=== PATIENT | female | born 1990 | race African-American/Black ===

== ENCOUNTER 2016-10-27 10:37 | Emergency (ER) | payer OTHER ==
[2016-10-27 10:44] VITALS: BP 125/69; PULSE 74; TEMP 97.8; BMI 31.8
--- NOTE | 2016-10-27 12:08 | PDOC ---
History of Present Illness - General Chief Complaint: Respiratory Stated Complaint: COLD SYMPTOMS Time Seen by Provider: 10/27/16 12:02 History Source: Patient Exam Limitations: No Limitations - History of Present Illness Initial Comments: 10/27/16 12:31 Patient here with complaints of cough, ear and throat pain, runny nose with clear drainage, nonproductive cough, mild nausea and generalized body aches. Feels may have influenza. Works as a inside sales advisor at [employer] Timing/Duration: reports: just prior to arrival Severity: reports: moderate Associated Symptoms: reports: chest pain/soreness, cough, fever/chills, nasal congestion, nasal drainage, sore throat Past History - Travel Traveled outside of the country in the last 30 days: No Close contact w/someone who was outside of country & ill: No - Past Medical History Allergies/Adverse Reactions: Allergies Allergy/AdvReac Type Severity Reaction Status Date / Time latex Allergy Difficulty Verified 10/27/16 11:44 Breathing Home Medications: Ambulatory Orders Oseltamivir Phosphate [Tamiflu -] 75 mg PO BID #10 capsule 10/27/16 Anemia: Yes HTN: Yes (PRECLAMPSIA) - Surgical History Abdominal Surgery: Yes ( A BABY) - Reproductive History (#): 1 Para: 0 Therapeutic (s) & number: No - Immunization History Immunization Up to Date: Yes - Psycho/Social/Smoking Cessation Hx Anxiety: No Suicidal Ideation: No Smoking History: Never smoked Hx Alcohol Use: Yes ("SOCIALLY") Drug/Substance Use Hx: No Substance Use Type: None Review of Systems - Review of Systems Able to Perform ROS?: Yes Is the patient limited Nepali proficient: Yes Constitutional: Yes: Symptoms Reported, See HPI, Chills, Fever, Loss of Appetite , Malaise Respiratory: Yes: Symptoms reported, See HPI, Cough. No: Wheezing Cardiac (ROS): No: Symptoms Reported ABD/GI: Yes: Symptoms Reported Musculoskeletal: Yes: Symptoms Reported, See HPI, Muscle Pain, Muscle Weakness Integumentary: No: Symptoms Reported Neurological: No: Symptoms reported All Other Systems: Reviewed and Negative *Physical Exam - Vital Signs Last Vital Signs Temp Pulse Resp BP Pulse Ox 97.8 F 74 16 125/69 99 10/27/16 10:41 10/27/16 10:41 10/27/16 10:41 10/27/16 10:41 10/27/16 10:41 - Physical Exam General Appearance: Yes: Nourished, Appropriately Dressed, Apparent Distress, Mild Distress HEENT: positive: [place]OD, Normal ENT Inspection, TMs Normal, Pharynx Normal Neck: positive: Supple, Lymphadenopathy (R), Lymphadenopathy (L) Respiratory/Chest: positive: Lungs Clear, Normal Breath Sounds. negative: Wheezing (course but clear) Cardiovascular: positive: Regular Rhythm Gastrointestinal/Abdominal: positive: Soft. negative: Tender, Distended, Guarding, Rebound Musculoskeletal: positive: Normal Inspection Extremity: positive: Normal Capillary Refill, Normal Inspection, Normal Range of Motion, Tender Integumentary: positive: Dry, Warm, Pale Neurologic: positive: pallet sorter II-XII NML intact, Fully Oriented, Alert, Normal Mood/ Affect, Normal Response, Motor Strength 5/5, Abnormal Cranial NS Progress Note - Progress Note Progress Note: Upper respiratory infection probable influenza, we'll treat with Tamiflu *DC/Admit/Observation/Transfer Diagnosis at time of Disposition: Upper respiratory infection Qualifiers: URI type: unspecified viral URI Qualified Code(s): J06.9 - Acute upper respiratory infection, unspecified; B97.89 - Other viral agents as the cause of diseases classified elsewhere - Discharge Dispostion Disposition: HOME Condition at time of disposition: Stable Admit: No - Patient Instructions Printed Discharge Instructions: DI for Viral Upper Respiratory Infection -- Adult Additional Instructions: Rest, drink lots of fluids: Teas, water, soups, Pedialyte Saltwater gargles Steamy showers/seem to face break up mucus Old-fashioned treatments help! Avoid contact with others until fevers and cough resolved as this is very contagious Lots of handwashing and good hygiene Continue [id number] medications for symptomatic relief Tylenol or Motrin for fever and pain Take all of Tamiflu as directed: 1 tab every 12 hours for 5 days Followup with private physician in one to 2 days as needed or if worsening Return to emergency department for worsened symptoms, fevers, dehydration Influenza takes between 5 and 7 days for resolution To not participate in any activity, work, or school until fevers and cough are gone for at least one day - Post Discharge Activity Work/School Note: Back to Work
== END 2016-10-27 12:32 | disposition home or self-care (01) ==
LOC: JERFT 10:37
DX: J06.9 Acute upper respiratory infection, unspecified (principal); D64.9 Anemia, unspecified
CPT/HCPCS: 99281-25

== ENCOUNTER 2017-05-12 09:43 | Emergency (ER) | payer SELFPAY ==
[2017-05-12 09:46] VITALS: TEMP 98; BMI 32.4
[2017-05-12] MEDS ORDERED: diazePAM 5 MG TABLET PO ONE (10:57)
[2017-05-12] MEDS ORDERED: KETOROLAC TROMETHAMINE 30 MG/1 ML VIAL IM ONE (10:57)
[2017-05-12] MEDS ORDERED: KETOROLAC TROMETHAMINE 60 MG/2 ML VIAL IM ONE (11:00)
[2017-05-12] MEDS ORDERED: diazePAM 5 MG TABLET ONE (11:02)
[2017-05-12] MEDS ORDERED: KETOROLAC TROMETHAMINE 60 MG/2 ML VIAL ONE (11:02)
--- NOTE | 2017-05-12 11:06 | PDOC ---
History of Present Illness - General Chief Complaint: Back Pain Stated Complaint: BACK PAIN Time Seen by Provider: 05/12/17 10:20 History Source: Patient - History of Present Illness Occurred: reports: other Severity: reports: severe Pain Location: reports: back Past History - Past Medical History Allergies/Adverse Reactions: Allergies Allergy/AdvReac Type Severity Reaction Status Date / Time latex Allergy Difficulty Verified 05/12/17 09:46 Breathing Home Medications: Ambulatory Orders Cyclobenzaprine HCl [Flexeril -] 10 mg PO TID #9 tablet 05/12/17 Ibuprofen [Motrin -] 600 mg PO QID #28 tablet 05/12/17 Anemia: Yes HTN: Yes (PRECLAMPSIA) - Surgical History Abdominal Surgery: Yes ( A BABY) - Reproductive History (#): 1 Para: 0 Therapeutic (s) & number: No - Immunization History Immunization Up to Date: Yes - Psycho/Social/Smoking Cessation Hx Anxiety: No Suicidal Ideation: No Smoking History: Never smoked Information on smoking cessation initiated: No Hx Alcohol Use: Yes ("SOCIALLY") Drug/Substance Use Hx: No Substance Use Type: None Review of Systems - Review of Systems Constitutional: No: Chills, Fever : No: Dysuria, Flank Pain, Hematuria Musculoskeletal: Yes: Back Pain Neurological: No: Numbness, Tingling, Weakness *Physical Exam - Vital Signs Last Vital Signs Temp Pulse Resp BP Pulse Ox 98 F 70 18 165/98 100 05/12/17 09:45 05/12/17 09:45 05/12/17 09:45 05/12/17 09:45 05/12/17 09:45 - Physical Exam Comments: 05/12/17 11:04 Pt sitting on stretcher with her hands on her mid lower pain and crying loudly in ED 05/12/17 11:06 General Appearance: Yes: Appropriately Dressed, Severe Distress HEENT: positive: Normal Voice Neck: positive: Supple Respiratory/Chest: negative: Respiratory Distress Musculoskeletal: positive: Vertebral Tenderness (to mid lower back). negative: CVA Tenderness Extremity: positive: Normal Inspection Integumentary: positive: Dry, Warm Neurologic: positive: Fully Oriented, Alert, Normal Mood/Affect Medical Decision Making - Medical Decision Making 05/12/17 11:01 26-year-old female, denies any past medical history here with severe back pain. Patient complaining of gradual onset of mid lower back pain 2 days ago that was initially intermittent but worsened this a.m. and now constant and sharp. Pain does not radiate and no lower extremity weakness, saddle anesthesia, bowel or bladder incontinence, dysuria, hematuria, nausea, vomiting, fever or chills. Denies any trauma and no obvious inciting agents. No h/o simialr pain and has not taken any pain meds. No history of kidney stone. See exam LBP Possible spasm No red flags at this time, i.e cauda equina or infxn -pain meds -reassess 05/12/17 11:07 05/12/17 12:44 Pt appears more comfortable and states she feels much better. Will dc w/ rx for pain control *DC/Admit/Observation/Transfer Diagnosis at time of Disposition: Low back pain Qualifiers: Chronicity: acute Back pain laterality: bilateral Sciatica presence: without sciatica Qualified Code(s): M54.5 - Low back pain - Discharge Dispostion Disposition: HOME Condition at time of disposition: Improved - Prescriptions Prescriptions: Cyclobenzaprine HCl [Flexeril -] 10 mg PO TID #9 tablet Ibuprofen [Motrin -] 600 mg PO QID #28 tablet - Patient Instructions Printed Discharge Instructions: Low Back Pain Additional Instructions: Take medication as directed and follow up with your PMD if pain persists
[2017-05-12 12:33] LABS: URINE APPEARANCE SLCLOUDY; URINE BILIRUBIN NEGATIVE (NEGATIVE); URINE BLOOD NEGATIVE (NEGATIVE); URINE COLOR LTYELLOW; URINE GLUCOSE (UA) NEGATIVE (NEGATIVE); URINE KETONE NEGATIVE (NEGATIVE); URINE LEUK ESTERASE NEGATIVE (NEGATIVE); URINE NITRITE NEGATIVE (NEGATIVE); URINE PROTEIN NEGATIVE (NEGATIVE); URINE UROBILINOGEN NEGATIVE mg/dL (0.2-1.0)
--- NOTE | 2017-05-12 12:54 | PDOC ---
*Physical Exam - Vital Signs Last Vital Signs Temp Pulse Resp BP Pulse Ox 98 F 70 18 165/98 100 05/12/17 09:45 05/12/17 09:45 05/12/17 09:45 05/12/17 09:45 05/12/17 09:45 ED Treatment Course - ADDITIONAL ORDERS Additional order review: Laboratory Results 05/12/17 05/12/17 10:57 10:20 Urine Color Ltyellow Urine Appearance Slcloudy Urine pH 6.0 Urine Protein Negative Urine Glucose (UA) Negative Urine Ketones Negative Urine Blood Negative Urine Nitrite Negative Urine Bilirubin Negative Urine Urobilinogen Negative Ur Leukocyte Esterase Negative Urine HCG, Qual Negative - Medications Given in the ED: ED Medications Discontinued Medications Generic Name Dose Route Start Last Admin Trade Name Rajni MUNOZ Reason Stop Dose Admin Diazepam 5 mg 05/12/17 10:57 05/12/17 11:16 Valium - PO 05/12/17 10:58 5 mg ONCE ONE Administration Ketorolac Tromethamine 30 mg 05/12/17 10:57 05/12/17 11:18 Toradol Injection - IM 05/12/17 10:58 Not Given ONCE ONE Ketorolac Tromethamine 60 mg 05/12/17 11:00 05/12/17 11:16 Toradol Injection - IM 05/12/17 11:01 60 mg ONCE ONE Administration *DC/Admit/Observation/Transfer Diagnosis at time of Disposition: Low back pain Qualifiers: Chronicity: acute Back pain laterality: bilateral Sciatica presence: without sciatica Qualified Code(s): M54.5 - Low back pain - Discharge Dispostion Disposition: HOME Condition at time of disposition: Improved - Prescriptions Prescriptions: Cyclobenzaprine HCl [Flexeril -] 10 mg PO TID #9 tablet Ibuprofen [Motrin -] 600 mg PO QID #28 tablet - Referrals - Patient Instructions Printed Discharge Instructions: Low Back Pain Additional Instructions: Take medication as directed and follow up with your PMD if pain persists - Post Discharge Activity Work/School Note: Back to Work
[2017-05-12 13:05] VITALS: BP 158/64; PULSE 65
== END 2017-05-12 13:02 | disposition home or self-care (01) ==
LOC: JERFT 09:43 → JER 09:43
PROC: 3E0233Z Introduction of Anti-inflammatory into Muscle, Percutaneous Approach (ICD-10-PCS; principal; 2017-05-12)
DX: M54.5 Low back pain (principal); Z59.0 Homelessness
CPT/HCPCS: 81003; 84703; 99282-25

== ENCOUNTER 2018-06-27 23:38 | Emergency (ER) | payer OTHER ==
[2018-06-27 23:47] VITALS: BP 133/71; BMI 31.8
--- NOTE | 2018-06-28 01:10 | PDOC ---
History of Present Illness - General Chief Complaint: Chest Pain Stated Complaint: CHEST PAIN Time Seen by Provider: 06/28/18 01:09 History Source: Patient Exam Limitations: No Limitations - History of Present Illness Initial Comments: 06/28/18 01:37 27y F hx of gestational htn, gerd, kidney stones, presnts with midsternal cp, is intermittent, sharp/stabbing pain radiatingt othe back, and is wrose when she swallows or takes deep breath. The pain lasts for a few seconds and comes and goes. No associated escoto, leg swelling, hemoptysis. pt curretnly asymptomtic. no associated fever/chills, n/v, diarrhea, emelena bpr. no prior episodes of pain in the past. took tums without signficant improvement, 04/30, no prior history of this pain. Past History - Past Medical History Allergies/Adverse Reactions: Allergies Allergy/AdvReac Type Severity Reaction Status Date / Time latex Allergy Difficulty Verified 06/27/18 23:47 Breathing Home Medications: Ambulatory Orders Cyclobenzaprine HCl [Flexeril -] 10 mg PO TID #9 tablet 05/12/17 Ibuprofen [Motrin -] 600 mg PO QID #28 tablet 05/12/17 Anemia: Yes COPD: No HTN: Yes (PRECLAMPSIA) - Surgical History Abdominal Surgery: Yes ( A BABY) - Reproductive History (#): 1 Para: 0 Therapeutic (s) & number: No - Immunization History Immunization Up to Date: Yes - Suicide/Smoking/Psychosocial Hx Smoking History: Never smoked Hx Alcohol Use: Yes ("SOCIALLY") Drug/Substance Use Hx: No Substance Use Type: None Review of Systems - Review of Systems Able to Perform ROS?: Yes Comments:: 06/28/18 03:37 Constitutional - no reported Fever, Chills, HEENT: no reported vision changes, sore throat Respiratory: no reported cough, sob, hemoptysis Cardiac: +chest pain no reported , palpitations, light headedness, leg swelling Abd/GI: no reported abd pain, nausea, vomiting, blood per rectum, melena, diarrhea : no reported dysuria, frequency, discharge Musculskelatal - no reported back pain, joint swelling skin - no reported bruising, erythema, rash neurological: no reported headache, numbness, focal weakness, tingling, ataxia, hematologic: no reported easy bruising, easy bleeding *Physical Exam - Vital Signs Last Vital Signs Temp Pulse Resp BP Pulse Ox 98.0 F 74 18 133/71 98 06/27/18 23:45 06/27/18 23:45 06/27/18 23:45 06/27/18 23:45 06/27/18 23:45 - Physical Exam Comments: 06/28/18 03:37 GENERAL: The patient is awake, alert, and fully oriented, Nontoxic - in no acute distress. HEAD: Normocephalic, atraumatic. EYES: extraocular movements intact, sclera anicteric, conjunctiva clear. ENT: Normal voice, Moist mucous membranes. NECK: Normal range of motion, supple LUNGS: Breath sounds equal, clear to auscultation bilaterally. No wheezes, no rhonchi, no rales. HEART: Regular rate and rhythm, normal S1 and S2 without murmur, rub or gallop. ABDOMEN: Soft, nontender, normoactive bowel sounds. No guarding, no rebound. . No CVA tenderness EXTREMITIES: Normal range of motion, no edema. No clubbing or cyanosis. No cords, erythema, or tenderness. NEUROLOGICAL: No facial assymetry, Normal speech, PSYCH: Normal mood, normal affect. SKIN: Warm, Dry, normal turgor, Heart Score/ECG Review - ECG Impressions Comment:: 06/28/18 03:40 Twelve-lead EKG was performed and reviewed by me. There is normal sinus rhythm with a normal rate. The axis is normal. The intervals are normal. There is normal R wave progression There are no ST or T wave abnormalities. Impression: Normal twelve-lead EKG Medical Decision Making - Medical Decision Making 06/28/18 03:23 discussed with [facility], where pt was earlier results - trop .0.24 alt, ast 50, 89 bili 1.6 bnp wnl cxr neg 06/28/18 03:37 eKG without signs of acute ischemia As the patient had lab work at [facility] will defer further lab work. Differential for the patient's symptoms includes possible esophageal spasm, gall stones The patient is currently asymptomatic I will discharge patient follow up with GI Return precautions were discussed I discussed the physical exam findings, ancillary test results and final diagnoses with the patient. I answered all of the patient's questions. The patient was satisfied with the care received and felt comfortable with the discharge plan and treatment plan. The patient will call their primary care physician within 24 hours to arrange follow-up and will return to the Emergency Department with any new, persistent or worsening symptoms. *DC/Admit/Observation/Transfer Diagnosis at time of Disposition: Atypical chest pain - Discharge Dispostion Disposition: HOME Condition at time of disposition: Improved Decision to Admit order: No - Referrals Referrals: Saeid Roblero MD [Primary Care Provider] - Liu Cho MD [Staff Physician] - - Patient Instructions Printed Discharge Instructions: DI for Atypical Chest Pain Additional Instructions: The cause of your chest pain may be due to your esophgus especially if it is worse while you are eating. See a principal biostatistician for further evaluation. If you have worsening pain, are unable to keep any food down, or have any other concerns, return to the emergncy department. - Post Discharge Activity
[2018-06-28] MEDS ORDERED: MAG HYDROX/AL HYDROX/SIMETH -MYLANTA- ORAL SUSPENSION PO ONE (01:43)
[2018-06-28] MEDS ORDERED: FAMOTIDINE 20 MG/50 ML IVPB 20 MG in PREMIX 50 IVPB ONE (01:43)
[2018-06-28] MEDS ORDERED: RANITIDINE HCL 150 MG TABLET (FP) PO ONE (03:24)
[2018-06-28] MEDS ORDERED: RANITIDINE HCL 150 MG TABLET (FP) ONE (03:28)
[2018-06-28 04:22] VITALS: PULSE 82; TEMP 98.7
--- NOTE | 2018-06-28 15:36 | EKG ---
Test Reason : Blood Pressure : / mmHG Vent. Rate : 071 BPM Atrial Rate : 071 BPM P-R Int : 138 ms QRS Dur : 084 ms QT Int : 362 ms P-R-T Axes : 023 054 037 degrees QTc Int : 393 ms NORMAL SINUS RHYTHM NORMAL ECG NO PREVIOUS ECGS AVAILABLE Confirmed by ZACK BROCK MD ([id number]) on 06/28/2018 3:35:39 PM Referred By: Confirmed By:ZACK BROCK MD
== END 2018-06-28 04:22 | disposition home or self-care (01) ==
LOC: JER 23:38
DX: R07.89 Other chest pain (principal)
CPT/HCPCS: 93005; 93010; 99283-25

== ENCOUNTER 2018-09-03 10:11 | Emergency (ER) | payer OTHER ==
[2018-09-03 10:35] VITALS: BP 136/74; PULSE 70; TEMP 98.7; BMI 31.8
[2018-09-03] MEDS ORDERED: IBUPROFEN 400 MG TABLET (FP) PO ONE ×2 (11:38→11:43)
--- NOTE | 2018-09-03 11:38 | PDOC ---
History of Present Illness - General Chief Complaint: Cold Symptoms Stated Complaint: Cold Symptoms Time Seen by Provider: 09/03/18 11:09 History Source: Patient Exam Limitations: No Limitations Past History - Travel Traveled outside of the country in the last 30 days: No Close contact w/someone who was outside of country & ill: No - Past Medical History Allergies/Adverse Reactions: Allergies Allergy/AdvReac Type Severity Reaction Status Date / Time latex Allergy Difficulty Verified 09/03/18 10:32 Breathing Home Medications: Ambulatory Orders NK [No Known Home Medication] 09/03/18 Anemia: Yes COPD: No HTN: Yes (PRECLAMPSIA) - Surgical History Abdominal Surgery: Yes ( A BABY) - Reproductive History (#): 1 Para: 0 Therapeutic (s) & number: No - Immunization History Immunization Up to Date: Yes - Suicide/Smoking/Psychosocial Hx Smoking History: Never smoked Hx Alcohol Use: Yes Drug/Substance Use Hx: No Substance Use Type: None Review of Systems - Review of Systems Able to Perform ROS?: Yes Comments:: 09/03/18 11:37 CONSTITUTIONAL: Absent: fever, chills, diaphoresis, generalized weakness, malaise, loss of appetite HEENT: Absent: rhinorrhea, nasal congestion, throat pain, throat swelling, difficulty swallowing, mouth swelling, ear pain, eye pain, visual Changes CARDIOVASCULAR: Absent: chest pain, loss of consciousness, palpitations, irregular heart rate, peripheral edema RESPIRATORY: Absent: cough, shortness of breath, dyspnea with exertion, orthopnea, wheezing, stridor, hemoptysis GASTROINTESTINAL: Absent: abdominal pain, abdominal distension, nausea, vomiting, diarrhea, constipation, melena, hematochezia GENITOURINARY: Absent: dysuria, frequency, urgency, hesitancy, hematuria, flank pain, genital pain MUSCULOSKELETAL: Absent: myalgia, arthralgia, joint swelling SKIN: Absent: rash, itching, pallor HEMATOLOGIC/IMMUNOLOGIC: Absent: easy bleeding, easy bruising, lymphadenopathy, frequent infections ENDOCRINE: Absent: unexplained weight gain, unexplained weight loss, heat intolerance, cold intolerance NEUROLOGIC: Absent: headache, focal weakness or paresthesias, dizziness, unsteady gait, seizure, mental status changes, bladder or bowel incontinence PSYCHIATRIC: Absent: anxiety, depression, suicidal or homicidal ideation, hallucinations. Is the patient limited Bulgarian proficient: No *Physical Exam - Vital Signs Last Vital Signs Temp Pulse Resp BP Pulse Ox 98.7 F 70 18 136/74 100 09/03/18 10:32 09/03/18 10:32 09/03/18 10:32 09/03/18 10:32 09/03/18 10:32 - Physical Exam Comments: 09/03/18 11:37 GENERAL: Well developed, well nourished. Awake and alert. No acute distress. HEENT: Normocephalic, atraumatic. PERRLA, EOMI. No conjunctival pallor. Sclera are non- icteric. Moist mucous membranes. Oropharynx is clear. NECK: Supple. Full ROM. No JVD. Carotid pulses 2+ and symmetric, without bruits. No thyromegaly. No lymphadenopathy. CARDIOVASCULAR: Regular rate and rhythm. No murmurs, rubs, or gallops. Distal pulses are 2+ and symmetric. PULMONARY: No evidence of respiratory distress. Lungs clear to auscultation bilaterally. No wheezing, rales or rhonchi. ABDOMINAL: Soft. Non-tender. Non-distended. No rebound or guarding. No organomegaly. Normoactive bowel sounds. MUSCULOSKELETAL Normal range of motion at all joints. No bony deformities or tenderness. No CVA tenderness. EXTREMITIES: No cyanosis. No clubbing. No edema. No calf tenderness. SKIN: Warm and dry. Normal capillary refill. No rashes. No jaundice. NEUROLOGICAL: Alert, awake, appropriate. Cranial nerves 2-12 intact. No deficits to light touch and temperature in face, upper extremities and lower extremities. No motor deficits in the in face, upper extremities and lower extremities. Normoreflexic in the upper and lower extremities. Normal speech. Toes are down- going bilaterally. Gait is normal without ataxia. PSYCHIATRIC: Cooperative. Good eye contact. Appropriate mood and affect. Moderate Sedation - Procedure Monitoring Vital Signs: Procedure Monitoring Vital Signs Temperature 98.7 F 09/03/18 10:32 Pulse Rate 70 09/03/18 10:32 Respiratory Rate 18 09/03/18 10:32 Blood Pressure 136/74 09/03/18 10:32 O2 Sat by Pulse Oximetry (%) 100 09/03/18 10:32 *DC/Admit/Observation/Transfer Diagnosis at time of Disposition: Cough - Discharge Dispostion Disposition: HOME Condition at time of disposition: Stable Decision to Admit order: No - Referrals Referrals: Saeid Roblero MD [Primary Care Provider] - - Patient Instructions Printed Discharge Instructions: DI for Viral Upper Respiratory Infection -- Adult Additional Instructions: You have an upper respiratory infection, or the common cold. Your urine was negative for infection Take the medrol dose pack as prescribed You may take the tylenol with codeine before bed. Do not drink or drive after taking this medication as it may make you drowsy Drink plenty of fluids. Cough drops and warm tea may help your symptoms as well. Please follow up with her primary care doctor this week. Return to the emergency department if you have difficulty breathing, shortness of breath, worsening pain, nausea, vomiting or if you have any changes in your symptoms. - Post Discharge Activity Forms/Work/School Notes: Back to Work
[2018-09-03 12:07] LABS: HCG,QUALITATIVE URINE Negative
[2018-09-03] MEDS ORDERED: guaiFENesin/D-METHORPHAN HB 10 ML UNIT-DOSE CUPS PO ONE (12:28)
[2018-09-03] MEDS ORDERED: guaiFENesin/D-METHORPHAN HB 10 ML UNIT-DOSE CUPS ONE (12:49)
[2018-09-03 13:03] LABS: URINE APPEARANCE CLEAR; URINE BILIRUBIN NEGATIVE (<2.0 mg/dL); URINE COLOR YELLOW; URINE GLUCOSE (UA) NEGATIVE (NEGATIVE); URINE KETONE NEGATIVE (NEGATIVE); URINE LEUK ESTERASE NEGATIVE (NEGATIVE); URINE NITRITE NEGATIVE (NEGATIVE); URINE PROTEIN NEGATIVE (NEGATIVE)
== END 2018-09-03 13:31 | disposition home or self-care (01) ==
LOC: JERFT 10:11
DX: R05 Cough (principal)
CPT/HCPCS: 81003; 84703; 87086; 99281-25

== ENCOUNTER 2018-12-14 12:06 | Emergency (ER) | payer OTHER ==
[2018-12-14 12:35] VITALS: BP 118/80; PULSE 86; TEMP 98.6; BMI 31.9
--- NOTE | 2018-12-14 13:31 | PDOC ---
History of Present Illness - General Chief Complaint: Cold Symptoms Stated Complaint: COLD SYMPTOMS Time Seen by Provider: 12/14/18 12:50 History Source: Patient Exam Limitations: Clinical Condition - History of Present Illness Initial Comments: 12/14/18 13:26 Patient with no significant past medical history present with complaint of three -day history of nasal congestion, runny nose, dry cough, body aches and headache. Patient denies fevers, nausea or vomiting. Patient reports taking over -the-counter Mucinex with minimal improvement. Denies any other symptoms Timing/Duration: other (3 days) Past History - Past Medical History Allergies/Adverse Reactions: Allergies Allergy/AdvReac Type Severity Reaction Status Date / Time latex Allergy Difficulty Verified 12/14/18 12:31 Breathing Home Medications: Ambulatory Orders Guaifenesin AC [Robitussin AC] 10 ml PO HS #100 ud MDD 1 09/03/18 Ipratropium [place] 2 spray NS BID PRN #1 spray 12/14/18 Loratadine 10 mg PO DAILY #10 capsule 12/14/18 Methylprednisolone [Medrol Dose Luis] 4 mg PO ASDIR #21 tablet 12/14/18 Anemia: Yes COPD: No HTN: Yes (PRECLAMPSIA) - Surgical History Abdominal Surgery: Yes ( A BABY) - Reproductive History (#): 1 Para: 0 Therapeutic (s) & number: No - Immunization History Immunization Up to Date: Yes - Suicide/Smoking/Psychosocial Hx Smoking History: Never smoked Hx Alcohol Use: No Drug/Substance Use Hx: No Substance Use Type: None Review of Systems - Review of Systems Able to Perform ROS?: Yes Is the patient limited Japanese proficient: No Constitutional: Yes: See HPI, Malaise. No: Chills, Fever HEENTM: Yes: Symptoms Reported, See HPI, Nose Congestion. No: Eye Pain, Blurred Vision, Tearing, Recent change in vision, Double Vision, Cataracts, Ear Pain, Ocular Prothesis, Ear Discharge, Nose Pain, Tinnitus, Nose Bleeding, Hearing Loss, Throat Pain, Throat Swelling, Mouth Pain, Dental Problems, Difficulty Swallowing, Mouth Swelling, Other Respiratory: Yes: Symptoms reported, See HPI, Cough. No: Orthopnea, Shortness of Breath, SOB with Exertion, SOB at Rest, Stridor, Wheezing, Productive cough, Hemoptysis, Other Cardiac (ROS): No: Symptoms Reported, See HPI, Chest Pain, Edema, Irregular Heart Rate, Lightheadedness, Palpitations, Syncope, Chest Tightness, Other ABD/GI: No: Constipated, Diarrhea, Nausea, Vomiting, Abdominal cramping All Other Systems: Reviewed and Negative *Physical Exam - Vital Signs Last Vital Signs Temp Pulse Resp BP Pulse Ox 98.6 F 86 20 118/80 98 12/14/18 12:31 12/14/18 12:31 12/14/18 12:31 12/14/18 12:31 12/14/18 12:31 - Physical Exam Comments: 12/14/18 13:27 GENERAL: Well developed, well nourished. Awake and alert. No acute distress. HEENT: Bilateral nasal congestion. Normal bilateral ear exam. Normocephalic, atraumatic. PERRLA, EOMI. No conjunctival pallor. Sclera are non-icteric. Moist mucous membranes. Oropharynx is clear. NECK: Supple. Full ROM. CARDIOVASCULAR: Regular rate and rhythm. No murmurs, rubs, or gallops. Distal pulses are 2+ and symmetric. PULMONARY: No evidence of respiratory distress. Lungs clear to auscultation bilaterally. No wheezing, rales or rhonchi. ABDOMINAL: Soft. Non-tender. Non-distended. No rebound or guarding. No organomegaly. Normoactive bowel sounds. MUSCULOSKELETAL Normal range of motion at all joints. SKIN: Warm and dry. Normal capillary refill. No rashes. No jaundice. NEUROLOGICAL: Alert, awake, appropriate. Gait is normal without ataxia. PSYCHIATRIC: Cooperative. Good eye contact. Appropriate mood General Appearance: Yes: Nourished, Appropriately Dressed. No: Apparent Distress Medical Decision Making - Medical Decision Making 12/14/18 13:28 Patient with no syndrome past medical history present with complaint of three- day history of URI symptoms with body aches and no fevers. Patient reports taking [id number] medication with no improvement. exam unremarkable lungs clear to auscultation. Normal cardio exam. No fever on presentation. Symptoms likely viral URI versus sinusitis versus influenza Rapid flu tests ordered and patient be discharged home on Medrol Luis area and Atrovent nasal spray and loratadine with PCP follow-up 12/14/18 13:34 Rapid flu negative. Patient is stable for outpatient management for viral URI with PCP follow-up. *DC/Admit/Observation/Transfer Diagnosis at time of Disposition: Upper respiratory infection Qualifiers: URI type: unspecified viral URI Qualified Code(s): J06.9 - Acute upper respiratory infection, unspecified Sinusitis Qualifiers: Sinusitis location: unspecified location Chronicity: acute Recurrence: non- recurrent Qualified Code(s): J01.90 - Acute sinusitis, unspecified - Discharge Dispostion Disposition: HOME Condition at time of disposition: Stable Decision to Admit order: No - Prescriptions Prescriptions: Ipratropium [place] 2 spray NS BID PRN #1 spray PRN Reason: nasal congestion Loratadine 10 mg PO DAILY #10 capsule Methylprednisolone [Medrol Dose Luis] 4 mg PO ASDIR #21 tablet - Referrals - Patient Instructions Printed Discharge Instructions: DI for Viral Upper Respiratory Infection -- Adult Additional Instructions: Take medication as prescribed. Increase fluid intake. Follow-up with primary cast needed - Post Discharge Activity Forms/Work/School Notes: Back to Work
== END 2018-12-14 14:28 | disposition home or self-care (01) ==
LOC: JERFT 12:06
DX: J01.00 Acute maxillary sinusitis, unspecified (principal); J06.9 Acute upper respiratory infection, unspecified; Z86.79 Personal history of other diseases of the circulatory system
CPT/HCPCS: 87804; 99281-25

== ENCOUNTER 2019-06-03 15:21 | Emergency (ER) | payer SELFPAY ==
[2019-06-03 15:38] VITALS: BP 158/89; PULSE 78; TEMP 98.3; BMI 31.8
[2019-06-03] MEDS ORDERED: IBUPROFEN 600 MG TABLET (FP) PO ONE (15:43)
--- NOTE | 2019-06-03 15:43 | PDOC ---
Rapid Medical Evaluation Chief Complaint: Ear Problem Time Seen by Provider: 06/03/19 15:34 Medical Evaluation: Allergies Allergy/AdvReac Type Severity Reaction Status Date / Time latex Allergy Difficulty Verified 06/03/19 15:36 Breathing Vital Signs Temp Pulse Resp BP Pulse Ox 98.3 F 78 16 158/89 99 06/03/19 15:36 06/03/19 15:36 06/03/19 15:36 06/03/19 15:36 06/03/19 15:36 06/03/19 15:42 Patient presents to ED with complaints of: left ear pain x 2 days, no other complaints, no meds taken Patient on brief exam: vss, no drainage exuding from ear I have ordered: motrin Patient to proceed to the ED Discharge Disposition - Diagnosis Ear pain - Referrals - Patient Instructions - Post Discharge Activity
--- NOTE | 2019-06-03 16:05 | PDOC ---
History of Present Illness - General Chief Complaint: Ear Problem Stated Complaint: LT EAR ACHE Time Seen by Provider: 06/03/19 15:34 History Source: Patient Exam Limitations: No Limitations Past History - Travel Traveled outside of the country in the last 30 days: No Close contact w/someone who was outside of country & ill: No - Past Medical History Allergies/Adverse Reactions: Allergies Allergy/AdvReac Type Severity Reaction Status Date / Time latex Allergy Difficulty Verified 06/03/19 15:36 Breathing Home Medications: Ambulatory Orders Guaifenesin AC [Robitussin AC] 10 ml PO HS #100 ud MDD 1 09/03/18 Ipratropium [place] 2 spray NS BID PRN #1 spray 12/14/18 Loratadine 10 mg PO DAILY #10 capsule 12/14/18 Methylprednisolone [Medrol Dose Luis] 4 mg PO ASDIR #21 tablet 12/14/18 Ibuprofen 600 mg PO Q6H #30 tablet 06/03/19 Anemia: Yes COPD: No HTN: Yes (PRECLAMPSIA) - Surgical History Abdominal Surgery: Yes ( A BABY) - Reproductive History (#): 1 Para: 0 Therapeutic (s) & number: No - Immunization History Immunization Up to Date: Yes - Suicide/Smoking/Psychosocial Hx Smoking History: Never smoked Hx Alcohol Use: No Drug/Substance Use Hx: No Substance Use Type: None Review of Systems - Review of Systems Able to Perform ROS?: Yes Comments:: 06/03/19 15:55 CONSTITUTIONAL: Absent: fever, chills, diaphoresis, generalized weakness, malaise, loss of appetite HEENT: Present: L ear pain Absent: rhinorrhea, nasal congestion, throat pain, throat swelling, difficulty swallowing, mouth swelling, eye pain, visual Changes SKIN: Absent: rash, itching, pallor NEUROLOGIC: Absent: headache, focal weakness or paresthesias, dizziness, unsteady gait, seizure, mental status changes, bladder or bowel incontinence PSYCHIATRIC: Absent: anxiety, depression, suicidal or homicidal ideation, hallucinations. Is the patient limited Persian proficient: No *Physical Exam - Vital Signs Last Vital Signs Temp Pulse Resp BP Pulse Ox 98.3 F 78 16 158/89 99 06/03/19 15:36 06/03/19 15:36 06/03/19 15:36 06/03/19 15:36 06/03/19 15:36 - Physical Exam Comments: 06/03/19 15:56 GENERAL: The patient is awake, alert, and fully oriented, in no acute distress. HEAD: Normal with no signs of trauma. EYES: Pupils equal, round and reactive to light, extraocular movements intact, sclera anicteric, conjunctiva clear. EARS: TM's b/l are pearly crandall in color with good cone of light. Ear canals clear without evidence of infection. No tragus pain MOUTH: Impacted wisdom tooth to the bottom L jaw. EXTREMITIES: Normal range of motion, no edema. NEUROLOGICAL: Normal speech, normal gait. PSYCH: Normal mood, normal affect. SKIN: Warm, Dry, normal turgor, no rashes or lesions noted. Medical Decision Making - Medical Decision Making 06/03/19 15:59 Pt is a 28 y/o F who presents to the ER with 2 days of L ear pain. She states the pain has been increasing over the past two days. She has tried over the counter medication with little relief of her symptoms. Denies lightheadedness, fever, hearing changes. A/P: Dental pain On exam pt with impacted L lower wisdom tooth; pain to palpation of the Lower jaw L ear is clear. Likely cause of pain is dental DC with analgesia and dental follow up I discussed the physical exam findings, ancillary test results and final diagnoses with the patient. I answered all of the patient's questions. The patient was satisfied with the care received and felt comfortable with the discharge plan and treatment plan. The Patient agrees to follow up with the primary care physician/specialist within 24-72 hours. Return precautions were given. *DC/Admit/Observation/Transfer Diagnosis at time of Disposition: Ear pain Qualifiers: Laterality: left Qualified Code(s): H92.02 - Otalgia, left ear - Discharge Dispostion Disposition: HOME Condition at time of disposition: Stable Decision to Admit order: No - Referrals Referrals: Talib Luna MD [Staff Physician] - - Patient Instructions Printed Discharge Instructions: DI for Dental Pain Additional Instructions: You ear ache is most likely caused by your impacted wisdom tooth. Take Motrin 600mg every 6 hours for pain not to exceed 3000mg a day Follow up with your dentist this week Return to the ER for any new or worsening symptoms - Post Discharge Activity Forms/Work/School Notes: Back to Work
== END 2019-06-03 16:10 | disposition home or self-care (01) ==
LOC: JERFT 15:21
DX: H92.02 Otalgia, left ear (principal)
CPT/HCPCS: 99281-25

== ENCOUNTER 2019-07-13 17:36 | Emergency (ER) | payer OTHER ==
--- NOTE | 2019-07-13 17:41 | PDOC ---
Rapid Medical Evaluation Chief Complaint: Pain Time Seen by Provider: 07/13/19 17:39 Medical Evaluation: Allergies Allergy/AdvReac Type Severity Reaction Status Date / Time latex Allergy Difficulty Verified 06/03/19 15:36 Breathing 07/13/19 17:39 Pt c/o: lower abd cramping, lmp in april , u preg -, no discharge Pt on brief exam: mid suprapubic tenderness, no cva tenderness, vss Pt ordered for: urine , labs Pt to proceed to the ED Discharge Disposition - Diagnosis Pelvic pain - Referrals - Patient Instructions - Post Discharge Activity
[2019-07-13 17:42] VITALS: BP 150/79; PULSE 71; TEMP 98; BMI 32.8
--- NOTE | 2019-07-13 18:56 | PDOC ---
History of Present Illness - General Chief Complaint: Pain Stated Complaint: ABD/PAIN, LMP 05/07/19 Time Seen by Provider: 07/13/19 17:39 - History of Present Illness Initial Comments: 07/13/19 18:46 CHIEF COMPLAINT: abd cramping HISTORY OF PRESENT ILLNESS: 28 yo A1 F with no significant PMH presents to ED with lower abdominal cramping since yesterday. Patient reports some "pink" when she wiped after using the bathroom this morning and expected to get her period. However, she did not get her period as expected today and at work the abdominal cramping began again. Patient reports taking 4 tests in the past month including this past weekend which have all been negative. Patient states she is not followed by not followed by any OBGYN. Patient denies fever, chills, nausea, vomiting, diarrhea, and any urinary symptoms. She does report intermittent yellow vaginal discharge this week. No recent travel or sick contacts. PAST MEDICAL HISTORY: Denies past medical history FAMILY HISTORY: Denies SOCIAL HISTORY: Denies tobacco, alcohol, illicit drug use. SURGICAL HISTORY: Denies ALLERGIES: latex REVIEW OF SYSTEMS General/Constitutional: Denies fever or chills. Denies weakness, weight change. HEENT: Denies change in vision. Denies ear pain or discharge. Denies sore throat. Cardiovascular: Denies chest pain or shortness of breath. Respiratory: Denies cough, wheezing, or hemoptysis. Gastrointestinal: Lower abdominal cramping, vaginal spotting this morning. Denies nausea, vomiting, diarrhea or constipation. Denies rectal bleeding. Genitourinary: Denies dysuria, frequency, or change in urination. Musculoskeletal: Denies joint or muscle swelling or pain. Denies neck or back pain. Skin and breasts: Denies rash or easy bruising. Neurologic: Denies headache, vertigo, loss of consciousness, or loss of sensation. Psychiatric: Denies depression or anxiety. PHYSICAL EXAM General Appearance: Well-appearing, appropriately dressed. No apparent distress , no intoxication. HEENT: EOMI, PERRLA, normal ENT inspection, normal voice, TMs normal, pharynx normal. No conjunctival pallor. No photophobia, scleral icterus. Neck: Supple. Trachea midline. No tenderness, rigidity, carotid bruit, stridor , lymphadenopathy, or thyromegaly. Respiratory/Chest: Lungs CTAB. No shortness of breath, chest tenderness, respiratory distress, accessory muscle use. No crackles, rales, rhonchi, stridor , wheezing, dullness Cardiovascular: RRR. S1, S2. No JVD, murmur, bradycardia, tachycardia. Vascular Pulses: Dorsalis-Pedis (R): 2+, Dorsalis-Pedis (L): 2+ Gastrointestinal/Abdominal: Normal bowel sounds. Abdomen soft, non-distended. No tenderness or rebound tenderness. No organomegaly, pulsatile mass, guarding , hernia, hepatomegaly, splenomegaly. Lymphatic: No adenopathy, tenderness. Musculoskeletal/Extremities: Normal inspection. FROM of all extremities, normal capillary refill. Pelvis Stable. No CVA tenderness. No tenderness to extremities, pedal edema, swelling, erythema or deformity. Integumentary: Appropriate color, dry, warm. No cyanosis, erythema, jaundice or rash Neurologic: production bow maker II-XII intact. Fully oriented, alert. Appropriate mood/affect. Motor strength 5/5. No appreciable EOM palsy, facial droop or sensory deficit. Past History - Past Medical History Allergies/Adverse Reactions: Allergies Allergy/AdvReac Type Severity Reaction Status Date / Time latex Allergy Difficulty Verified 07/13/19 17:42 Breathing Home Medications: Ambulatory Orders Guaifenesin AC [Robitussin AC] 10 ml PO HS #100 ud MDD 1 09/03/18 Ipratropium [place] 2 spray NS BID PRN #1 spray 12/14/18 Loratadine 10 mg PO DAILY #10 capsule 12/14/18 Methylprednisolone [Medrol Dose Luis] 4 mg PO ASDIR #21 tablet 12/14/18 Ibuprofen 600 mg PO Q6H #30 tablet 06/03/19 Ibuprofen [Motrin -] 600 mg PO QID #28 tablet 07/13/19 Anemia: Yes COPD: No HTN: Yes (PRECLAMPSIA) - Surgical History Abdominal Surgery: Yes ( A BABY) - Reproductive History (#): 1 Para: 0 Therapeutic (s) & number: No - Immunization History Immunization Up to Date: Yes - Psycho Social/Smoking Cessation Hx Smoking History: Never smoked Information on smoking cessation initiated: No Hx Alcohol Use: No Drug/Substance Use Hx: No Substance Use Type: None *Physical Exam - Vital Signs Last Vital Signs Temp Pulse Resp BP Pulse Ox 98 F 71 19 150/79 99 07/13/19 17:39 07/13/19 17:39 07/13/19 17:39 07/13/19 17:39 07/13/19 17:39 Medical Decision Making - Medical Decision Making 07/13/19 21:47 28 yo A1 F with no significant PMH presents to ED with lower abdominal cramping since yesterday. After getting up from exam bed, patient notes blood that has soaked onto bed and states "Oh, I think that's my period." Upon return from bathroom patient states she does have her period now and feels that her cramping was just due to menstruation. Patient states she will f/u with OB referral for further evaluation of missed period. Discharge - Discharge Information Problems reviewed: No Clinical Impression/Diagnosis: Menstruation, abnormal, Dysmenorrhea Condition: Stable Disposition: HOME - Admission No - Additional Discharge Information Prescriptions: Ibuprofen [Motrin -] 600 mg PO QID #28 tablet - Follow up/Referral Referrals: Cheryl Guzman MD [Staff Physician] - - Patient Discharge Instructions Patient Printed Discharge Instructions: DI for Dysmenorrhea - Post Discharge Activity
== END 2019-07-13 19:15 | disposition home or self-care (01) ==
LOC: JER 17:36
DX: N94.6 Dysmenorrhea, unspecified (principal); N92.5 Other specified irregular menstruation; I10 Essential (primary) hypertension; Z91.040 Latex allergy status; Z86.2 Personal history of diseases of the blood and blood-forming organs and certain disorders involving the immune mechanism
CPT/HCPCS: 99281-25

== ENCOUNTER 2019-12-18 23:22 | Emergency (ER) | payer OTHER ==
[2019-12-19] MEDS ORDERED: ACETAMINOPHEN 325 MG TABLET (FP) PO ONE (00:29)
--- NOTE | 2019-12-19 00:32 | PDOC ---
Rapid Medical Evaluation Medical Evaluation: Allergies Allergy/AdvReac Type Severity Reaction Status Date / Time latex Allergy Difficulty Verified 07/13/19 17:42 Breathing 12/19/19 00:29 HPI: COVID-19 CDC guideline data points: The patient is a 29 y.o F presents with no known exposure to, COVID-19 with associated symptoms of cough productive of yellow and clear sputum, (-) SOB, anorexia, or diarrhea, complicated by this/these comorbidities: none ROS: NEGATIVE: difficulty breathing, shortness of breath, chest pain, lightheadedness, dizziness, nausea, vomiting and diarrhea. Other 12 point ROS reviewed and negative. PMD: Dianna Waldrop Exam: General: NAD, Well-Appearing, Awake, Alert Oriented x3. Vital signs stable. ENT: No rhinorrhea or nasal congestion. Neck: FROM, no midline tenderness. Lungs: Clear to auscultation bilaterally without wheezes, rhonchi or rales. Normal excursion. Patient is able to speak in full sentences. Heart: HR: Regular rhythm, S1-S2 present, no murmurs rubs or gallops. Abdomen: Non-distended. MSK/Extremities: No decrease ROM, No obvious deformities. No obvious cyanosis noted. Neuro: Normal Gait, Cranial Nerves II through XII Grossly Intact. Skin: No obvious rashes, bruising. Color Normal Appearing. Assessment/Plan: [Cough] Patient has a history of this/these comorbidities: none, denies recent travel and known COVID exposure. Patient does not meet testing criteria at this time. URI symptoms cxr if neg d/c home 12/19/19 01:18 cxr neg will d/c home Discharge Disposition - Diagnosis Cough URI (upper respiratory infection) Qualifiers: URI type: unspecified URI Qualified Code(s): J06.9 - Acute upper respiratory infection, unspecified - Discharge Dispostion Disposition: HOME Condition at time of disposition: Stable - Referrals Referrals: Shirley Bustillo MD [Primary Care Provider] - - Patient Instructions Printed Discharge Instructions: DI for Viral Upper Respiratory Infection -- Adult Additional Instructions: follow up with pmd in 1-2 days. Return to the ED worsening symptoms, SOB, chest pain. - Post Discharge Activity
[2019-12-19 01:23] VITALS: BP 111/77; PULSE 105; TEMP 99.6
== END 2019-12-19 01:45 | disposition home or self-care (01) ==
LOC: JER 23:22
DX: J06.9 Acute upper respiratory infection, unspecified (principal)
CPT/HCPCS: 71045-TC-FY; 99283-25

== ENCOUNTER 2020-03-13 21:58 | Emergency (ER) | payer OTHER ==
[2020-03-13 22:14] VITALS: BP 144/87; PULSE 95; TEMP 98.8; BMI 32.8
== END 2020-03-13 23:17 | disposition home or self-care (01) ==
LOC: JERFT 21:58 → JER 21:58 → JERFT 23:17
DX: B34.9 Viral infection, unspecified (principal)
CPT/HCPCS: 71046-TC-FY; 99283-25; U0003

== ENCOUNTER 2021-03-04 22:57 | Emergency (ER) | payer OTHER ==
[2021-03-04 23:18] VITALS: BMI 37.9
[2021-03-04] MEDS ORDERED: ONDANSETRON 4 MG/2 ML VIAL IVPUSH ONE (23:56)
[2021-03-04] MEDS ORDERED: SODIUM CHLORIDE 1,000 ML IV STA (23:56)
[2021-03-04] MEDS ORDERED: morphine SULFATE 4 MG/ML VIAL IVPUSH ONE (23:56)
[2021-03-05] MEDS ORDERED: ONDANSETRON 4 MG/2 ML VIAL ONE (00:06)
[2021-03-05] MEDS ORDERED: morphine SULFATE 4 MG/ML VIAL ONE (00:06)
[2021-03-05 00:35] LABS: PH,URINE 6.5 (5.0-8.0); URINE APPEARANCE CLEAR; URINE BILIRUBIN NEGATIVE (NEGATIVE); URINE COLOR YELLOW; URINE GLUCOSE (UA) NEGATIVE (NEGATIVE); URINE KETONE TRACE (NEGATIVE); URINE LEUK ESTERASE NEGATIVE (NEGATIVE); URINE NITRITE NEGATIVE (NEGATIVE); URINE PROTEIN NEGATIVE (NEGATIVE)
[2021-03-05 00:37] LABS: HCG,QUALITATIVE URINE Negative
[2021-03-05 00:44] LABS: BASO % 0.4 % (0-2.0); EOS % 1.7 % (0-4.5); HEMATOCRIT 38.6 % (32.4-45.2); HEMOGLOBIN 12.9 GM/dL (10.7-15.3); LYMPH % 41.8 % (8-40); MCH 28.4 pg (25.7-33.7); MCHC 33.4 g/dl (32.0-36.0); MEAN CELL VOLUME 84.8 fl (80-96); MEAN PLT VOLUME 8.2 fl (7.5-11.1); MONO % 7.3 % (3.8-10.2); NEUT % 48.8 % (42.8-82.8); PLATELET COUNT 274 10^3/uL (134-434); RBC 4.56 M/mm3 (3.60-5.2); RDW 13.2 % (11.6-15.6); WHITE BLOOD COUNT 6.4 K/mm3 (4.0-10.0)
[2021-03-05 00:49] LABS: EPI CELLS >36 /uL (0-25.1); HYALINE CASTS 2 /uL (0-3.1); URINE BACTERIA 1143 /uL (0-1359); URINE RBC 7 /uL (0-23.9); URINE WBC 34 /uL (0-25.8)
[2021-03-05 01:13] LABS: CHLORIDE 108 mmol/L (98-107); SODIUM 142 mmol/L (136-145)
[2021-03-05 01:16] LABS: ANION GAP 7 MMOL/L (8-16); BLOOD UREA NITROGEN 8.1 mg/dL (7-18); CO2 27 mmol/L (21-32); GLUCOSE,RANDOM 92 mg/dL (74-106); LIPASE 148 U/L (73-393)
[2021-03-05 01:19] LABS: CREATININE 0.8 mg/dL (0.55-1.3); SGOT/AST 30 U/L (15-37); SGPT/ALT 46 U/L (13-61)
[2021-03-05 01:20] LABS: BILIRUBIN,TOTAL 0.5 mg/dL (0.2-1); TOT PROT 8.1 g/dl (6.4-8.2)
[2021-03-05 01:22] LABS: ALK PHOS 86 U/L (45-117)
[2021-03-05 01:59] VITALS: BP 147/88; PULSE 78; TEMP 98.1
== END 2021-03-05 01:50 | disposition home or self-care (01) ==
LOC: JER 22:57
PROC: 3E033NZ Introduction of Analgesics, Hypnotics, Sedatives into Peripheral Vein, Percutaneous Approach (ICD-10-PCS; principal; 2021-03-04)
PROC: 3E033GC Introduction of Other Therapeutic Substance into Peripheral Vein, Percutaneous Approach (ICD-10-PCS; 2021-03-04)
PROC: 3E0337Z Introduction of Electrolytic and Water Balance Substance into Peripheral Vein, Percutaneous Approach (ICD-10-PCS; 2021-03-04)
DX: N39.0 Urinary tract infection, site not specified (principal)
CPT/HCPCS: 36415; 76705-TC; 80053; 81003; 82550; 83690; 84484; 84703; 85025; 87086; 93005; 93010; 99285-25; C9803; U0003; U0005

== ENCOUNTER 2021-07-05 21:28 | Emergency (ER) | payer OTHER ==
[2021-07-05 21:37] VITALS: BP 138/96; PULSE 83; TEMP 97; BMI 37.8
[2021-07-05] MEDS ORDERED: ACETAMINOPHEN 500 MG TABLET (FP) PO ONE (22:26)
[2021-07-05] MEDS ORDERED: ACETAMINOPHEN 325 MG TABLET (FP) ONE (22:33)
== END 2021-07-06 00:18 | disposition home or self-care (01) ==
LOC: JERFT 21:28 → JER 21:28
DX: M25.531 Pain in right wrist (principal)
CPT/HCPCS: 73110-TC-RT-FY; 73130-TC-RT-FY; 99283-25

== ENCOUNTER 2021-09-16 10:53 | Emergency (ER) | payer OTHER ==
[2021-09-16 11:08] VITALS: BP 156/94; PULSE 78; TEMP 98.2; BMI 38.9
[2021-09-18 03:07] LABS: SARS-CoV-2 NAA Detected (Not Detected)
== END 2021-09-16 12:21 | disposition home or self-care (01) ==
LOC: JER 10:53
DX: R05.1 Acute cough (principal); J02.9 Acute pharyngitis, unspecified
CPT/HCPCS: 99283-25; C9803; U0003; U0005

== ENCOUNTER 2022-02-23 17:56 | Emergency (ER) | payer OTHER ==
[2022-02-23 18:00] VITALS: BP 157/99; PULSE 72; TEMP 98.9; BMI 37.2
[2022-02-23] MEDS ORDERED: AMOX TR/POT CLAV 875MG/125MG TABLETS (FP) PO ONE (18:32)
[2022-02-23] MEDS ORDERED: KETOROLAC TROMETHAMINE 30 MG/1 ML VIAL IM ONE (18:32)
[2022-02-23] MEDS ORDERED: AMOX TR/POT CLAV 875MG/125MG TABLETS (FP) ONE (18:45)
[2022-02-23] MEDS ORDERED: KETOROLAC TROMETHAMINE 30 MG/1 ML VIAL ONE (18:45)
== END 2022-02-23 18:55 | disposition home or self-care (01) ==
LOC: JERFT 17:56
PROC: 3E0233Z Introduction of Anti-inflammatory into Muscle, Percutaneous Approach (ICD-10-PCS; principal; 2022-02-23)
DX: K03.81 Cracked tooth (principal)
CPT/HCPCS: 99284-25

== ENCOUNTER 2022-12-05 17:28 | Emergency (ER) | payer OTHER ==
[2022-12-05 17:37] VITALS: BP 168/99; PULSE 79; RESP 18; TEMP 98; BMI 37.2
[2022-12-05] MEDS ORDERED: ACETAMINOPHEN 500 MG TABLET (FP) PO ONE (18:15)
[2022-12-05] MEDS ORDERED: IBUPROFEN 400 MG TABLET (FP) PO ONE ×2 (18:15→18:17)
[2022-12-05] MEDS ORDERED: ACETAMINOPHEN 500 MG TABLET (FP) ONE (18:17)
== END 2022-12-05 18:57 | disposition home or self-care (01) ==
LOC: JER 17:28
DX: K08.89 Other specified disorders of teeth and supporting structures (principal)
CPT/HCPCS: 99283-25

== ENCOUNTER 2023-02-25 14:23 | Emergency (ER) | payer OTHER ==
[2023-02-25 14:32] VITALS: BP 143/93; RESP 18; BMI 38.9
[2023-02-25] MEDS ORDERED: ACETAMINOPHEN 500 MG TABLET (FP) PO ONE (15:25)
[2023-02-25] MEDS ORDERED: ACETAMINOPHEN 500 MG TABLET (FP) ONE (15:26)
[2023-02-25] MEDS ORDERED: IBUPROFEN 600 MG TABLET (FP) PO ONE ×2 (16:25)
[2023-02-25 16:44] VITALS: PULSE 81; TEMP 100
== END 2023-02-25 16:44 | disposition home or self-care (01) ==
LOC: JERFT 14:23
DX: R07.0 Pain in throat (principal); M79.10 Myalgia, unspecified site; R50.9 Fever, unspecified; R09.81 Nasal congestion; R13.10 Dysphagia, unspecified; U07.1 COVID-19; J02.8 Acute pharyngitis due to other specified organisms
CPT/HCPCS: 0241U-QW; 87651; 99283-25

== ENCOUNTER 2025-05-18 01:49 | Emergency (ER) | payer OTHER ==
[2025-05-18 02:02] VITALS: PULSE 68; RESP 20; TEMP 98.1; BMI 36.0
[2025-05-18] MEDS ORDERED: KETOROLAC TROMETHAMINE 30 MG/1 ML VIAL ONE (02:46)
[2025-05-18] MEDS ORDERED: ACETAMINOPHEN 325 MG TABLET (FP) ONE (02:46)
[2025-05-18] MEDS: KETOROLAC TROMETHAMINE 30 MG/1 ML VIAL IM ONE (03:00)
[2025-05-18] MEDS: ACETAMINOPHEN 325 MG TABLET (FP) PO ONE (03:00)
[2025-05-18 05:05] VITALS: BP 144/78
== END 2025-05-18 05:13 | disposition home or self-care (01) ==
LOC: JER 01:49
PROC: 3E0233Z Introduction of Anti-inflammatory into Muscle, Percutaneous Approach (ICD-10-PCS; principal; 2025-05-18)
DX: M25.562 Pain in left knee (principal); M79.662 Pain in left lower leg; R60.0 Localized edema; X50.9XXA Other and unspecified overexertion or strenuous movements or postures, initial encounter; Y93.02 Activity, running
CPT/HCPCS: 73562-TC-LT-FY